=== PATIENT | male | born 1990 | race Caucasian/White ===

== ENCOUNTER 2016-11-14 08:40 | Emergency (ER) | payer BC ==
[2016-11-14 09:05] VITALS: BP 137/78; PULSE 96; RESP 16; O2SAT 95
--- NOTE | 2016-11-14 10:00 | UCPHY ---
H & P Time Seen by Provider: 11/14/16 09:25 Patient Type: New HPI/ROS: 26-year-old male presents complaining of sore throat for 1-2 days with swollen glands. He also states he is out of his inhaler for his asthma. Review of systems General no fever no chills no weakness HEENT no eye pain no eye discharge. No eye redness, positive sore throat Respiratory no cough, no shortness of breath Cardiac no chest pain, no peripheral edema GI no abdominal pain, no diarrhea, no constipation, no nausea, no vomiting no flank pain, no hematuria, no dysuria Musculoskeletal no myalgias, no joint pain Heme no easy bruising, no easy bleeding Endo no polyuria, no polydipsia Skin no rashes, no pruritus Neuro no syncope, no dizziness, no headaches Psych is no suicidal ideation, no homicidal ideation Past Medical/Surgical History: Asthma Social History: No alcohol, no drugs Smoking Status: Never smoked Physical Exam: 26-year-old male Alert and oriented in no acute distress nontoxic appearance, afebrile Atraumatic normocephalic Extraocular muscles intact, anicteric Neck-supple, positive anterior cervical lymphadenopathy mildly tender to palpation Oropharynx positive enlarged tonsils, erythematous, no uvular deviation, no purulent exudate, tolerating own secretions, no trismus Lungs clear to auscultation bilaterally Heart regular rate and rhythm Abdomen normoactive bowel sounds soft nontender Extremities no cyanosis clubbing edema Skin no rash Constitutional: Initial Vital Signs Heart Rate 96 11/14/16 08:55 Respiratory Rate 16 11/14/16 08:55 Blood Pressure 137/78 H 11/14/16 08:55 O2 Sat (%) 95 11/14/16 08:55 O2 Delivery Mode Room Air Allergies/Adverse Reactions: No Known Allergies Allergy (Unverified 11/14/16 08:55) Home Medications: Medication Instructions Recorded Albuterol Hfa Anes Only [Proair 2 puffs IH Q4 PRN #1 mdi 11/14/16 Hfa Icu (*)] Penicillin V Potassium [Penicillin 500 mg PO BID #20 tab 11/14/16 VK] Medical Decision Making ED Course/Re-evaluation: Patient seen and evaluated for sore throat Impression Pharyngitis Clinically consistent with strep throat will treat empirically Plan Penicillin Given new prescription for his ProAir - Data Points Laboratory Results: 11/14/16 11/14/16 Unknown 09:10 Group A Strep Screen NEGATIVE (NEGATIVE) Group A Strep DNA Pending Departure - Departure Disposition: Home, Routine, Self-Care Clinical Impression: Pharyngitis Condition: Good Instructions: Pharyngitis (ED) Referrals: NONE *PRIMARY CARE P,. [Primary Care Provider] - As per Instructions [facility] [Provider Group] - As per Instructions Prescriptions: Penicillin V Potassium [Penicillin VK] 500 mg PO BID #20 tab Albuterol Hfa Anes Only [Proair Hfa Icu (*)] 2 puffs IH Q4 PRN #1 mdi PRN Reason: Wheezing - PQRS PQRS Measurement: na
== END 2016-11-14 10:09 | disposition home or self-care (01) ==
LOC: CED 08:40
DX: J02.9 Acute pharyngitis, unspecified (principal); J45.909 Unspecified asthma, uncomplicated
CPT/HCPCS: 87880-PO; 99203-PO; G0463-PO

== ENCOUNTER 2018-05-18 12:57 | Emergency (ER) | payer BC, OTHER ==
[2018-05-18] MEDS ORDERED: HYDROCODONE/APAP 5/325 TAB PO ONE (13:21)
[2018-05-18] MEDS ORDERED: IBUPROFEN 600 MG TAB PO ONE (13:21)
--- NOTE | 2018-05-18 13:47 | EDPHY ---
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 He has been unable to weight bear since that time was complaining of severe pain. No prior injuries. No numbness or weakness. ROS: 10 point Review of Systems is negative except as noted in the HPI. PMH: Asthma Social History: Positive smoking, occasional alcohol, occasional marijuana Family History: [non-contributory] Physical Exam: General: Awake, alert, no acute distress Right leg: Knee is nontender, full range of motion without pain, ankles nontender. Calf is markedly tender with swelling. Ft is nontender. He has an abnormal Belle test suggesting Achilles rupture. Skin: No rash - Personal History Current Tetanus Diphtheria and Acellular Pertussis (TDAP): Yes - Medical/Surgical History Hx Asthma: Yes Other PMH: asthma - Social History Smoking Status: Light smoker Constitutional: Initial Vital Signs Temperature (C) 36.8 C 05/18/18 13:19 Heart Rate 75 05/18/18 13:19 Respiratory Rate 18 05/18/18 13:19 Blood Pressure 144/96 H 05/18/18 13:19 O2 Sat (%) 95 05/18/18 13:19 O2 Delivery Mode Room Air Allergies/Adverse Reactions: No Known Allergies Allergy (Verified 05/18/18 13:18) Home Medications: Medication Instructions Recorded Albuterol Hfa Anes Only [Proair 2 puffs IH Q4 PRN #1 mdi 11/14/16 Hfa Icu (*)] Hydrocodone/Acetaminophen 1 - 2 each PO Q4-6PRN PRN #10 05/18/18 [Hydrocodon-Acetaminophen 5-325] tablet Medical Decision Making - Diagnostics Imaging Results: Imaging Impressions Ankle X-Ray 05/18/18 13:20 Impression: Nothing acute identified. 2. Right Foot , three views History:Pain post trauma. Findings: No acute fracture or dislocation is identified. There is no soft tissue calcification or ossification. There is an old healed fracture deformity involving the proximal dorsal base of the first metatarsal. Impression: Nothing acute identified. Foot X-Ray 05/18/18 13:20 Impression: Nothing acute identified. 2. Right Foot , three views History:Pain post trauma. Findings: No acute fracture or dislocation is identified. There is no soft tissue calcification or ossification. There is an old healed fracture deformity involving the proximal dorsal base of the first metatarsal. Impression: Nothing acute identified. ED Course/Re-evaluation: 28-year-old male with a likely ruptured Achilles. He has a abnormal Belle's test. Will place him in a posterior long leg splint with his toes plantar flex. Referred for Orthopedics for further evaluation. - Data Points Medications Given: Discontinued Medications Hydrocodone Bitart/Acetaminophen ([place] 5/325) 2 tab PO EDNOW ONE Stop: 05/18/18 13:22 Last Admin: 05/18/18 13:39 Dose: 2 tab Ibuprofen (Motrin) 600 mg PO EDNOW ONE Stop: 05/18/18 13:22 Last Admin: 05/18/18 13:41 Dose: 600 mg Departure - Departure Disposition: Home, Routine, Self-Care Clinical Impression: Achilles tendon rupture Condition: Good Instructions: Achilles Tendon Rupture (ED) Additional Instructions: Follow up with Orthopedics in 1-2 days for further evaluation. May take hydrocodone and ibuprofen as needed for the pain. Return to the emergency depart for increasing pain, numbness, weakness, discoloration, or any other concerns. Referrals: Riaz Lance MD [Medical Doctor] - As per Instructions Prescriptions: Hydrocodone/Acetaminophen [Hydrocodon-Acetaminophen 5-325] 1 - 2 each PO Q4- 6PRN PRN #10 tablet PRN Reason: Pain, Severe
[2018-05-18 14:53] VITALS: BP 166/82
== END 2018-05-18 14:25 | disposition home or self-care (01) ==
LOC: CED 12:57
DX: S86.011A Strain of right Achilles tendon, initial encounter (principal); J45.909 Unspecified asthma, uncomplicated; F17.200 Nicotine dependence, unspecified, uncomplicated; X58.XXXA Exposure to other specified factors, initial encounter; Y99.8 Other external cause status; Y93.67 Activity, basketball
CPT/HCPCS: 73610-PO; 73630-PO